=== PATIENT | female | born 1965 | race Caucasian/White ===

== ENCOUNTER → 2023-05-29 13:08 | Outpatient (REF) | payer BC, SELFPAY | LOC: HWRAD 13:08 | PROVIDERS: ATTENDING PHYSICIAN Family Medicine | DX: R05.1 Acute cough (principal); U07.1 COVID-19 | CPT/HCPCS: 71046 ==

== ENCOUNTER → 2023-07-05 15:06 | Outpatient (REF) | payer BC, SELFPAY | LOC: RAD 15:06 | PROVIDERS: ATTENDING PHYSICIAN Family Medicine | DX: R07.89 Other chest pain (principal) | CPT/HCPCS: 71250 ==

== ENCOUNTER → 2023-08-21 11:21 | Outpatient (REF) | payer BC, SELFPAY | LOC: HWRAD 11:21 | PROVIDERS: ATTENDING PHYSICIAN Family Medicine | DX: M54.9 Dorsalgia, unspecified (principal); R30.0 Dysuria | CPT/HCPCS: 72110 ==

== ENCOUNTER → 2023-11-30 08:04 | Outpatient (REF) | payer BC, SELFPAY | LOC: HWRAD 08:04 | PROVIDERS: ATTENDING PHYSICIAN Internal Medicine Rheumatology; REFERRING PHYSICIAN Family Medicine | DX: M81.0 Age-related osteoporosis without current pathological fracture (principal); I31.39 Other pericardial effusion (noninflammatory); M05.79 Rheumatoid arthritis with rheumatoid factor of multiple sites without organ or systems involvement; M19.041 Primary osteoarthritis, right hand; M19.042 Primary osteoarthritis, left hand; R06.02 Shortness of breath; Z13.1 Encounter for screening for diabetes mellitus | CPT/HCPCS: 77080 ==

== ENCOUNTER 2024-09-22 11:05 | Emergency (ER) | payer BC, SELFPAY ==
[2024-09-22 11:08] VITALS: BP 153/98
--- NOTE | 2024-09-22 14:13 | ED.GENMED ---
History of Present Illness
General
Chief Complaint: Musculo-Skeletal Complaint
Time Seen by Provider: 09/22/24 12:52
History of Present Illness
History of Present Illness:
59-year-old female presents to the emergency department for evaluation of right hand pain after fall last night onto an outstretched hand. Primary location of pain is the right lateral hand/fifth metatarsal, no distal paresthesias
Past History
Past History
ED Past Medical History: Other (Anemia)
ED Past Surgical History: Gynecological
Social History
Tobacco: Non-smoker
Alcohol: Occasional
Drug: None
Personal:
Living: with family
Review of Systems
Review of Systems
Allergies reviewed?: Yes
All Other Systems: ROS reviewed and negative except as documented in HPI and ROS
Phy Exam
Physical Exam
Physical Exam:
GEN: Well appearing, NAD, WDWN
HEENT: Oral mucosa moist, no scleral icterus
Cardiac: Regular rate
Lung: No respiratory distress, no tachypnea
MSK: Swelling and ecchymosis of the right ulnar hand particularly dorsally, no palpable deformity, limited range of motion of the 4th and 5th digits secondary to pain, no joint tenderness at the wrist
Skin: Good color, no pallor or jaundice, no rashes
Neuro: AO x3, moves all extremities freely
Psych: Calm, cooperative
Course
Orders/Labs/Results
Orders:
Orders
09/22/24 11:07
CR Hand - Right Min 3 Views Urgent
Comment:
Reason For Exam: pain, swelling, injury
09/22/24 11:10
Wrist, Right 3 Views [CR Wrist - Right Min 3 Views] Urgent
Comment:
Reason For Exam: fall
Vital Signs
Initial and Last Documented VS:
Initial Vital Signs
Temp Pulse Resp BP Pulse Ox
98.4 F 70 16 153/98 97
09/22/24 11:08 09/22/24 11:08 09/22/24 11:08 09/22/24 11:08 09/22/24 11:08
Last Documented Vital Signs
Temp Pulse Resp BP Pulse Ox
98.4 F 70 16 153/98 97
09/22/24 11:08 09/22/24 11:08 09/22/24 11:08 09/22/24 11:08 09/22/24 14:15
MDM/Problems Addressed
MDM/Problems Addressed:
Placed in ulnar gutter splint will refer to orthopedics as an outpatient for right minimally displaced fifth metatarsal fracture
*Pulse Oximetry
SaO2: 97
Oxygen Mode of Delivery: Room air
Patient hypoxic: no
*Critical Care Note
Total Time (30-74mins, 75-104mins- exclusive of procedures): Not Applicable
ED Attending Note
-
Portions of this chart may have been created with voice recognition software.� Occasional wrong word or��sound alike� substitutions may have occurred due to the inherent limitations of voice recognition software.
Discharge Plan
Departure
Patient Disposition: Home (Routine Discharge)
Date of Disposition: 09/22/24
Time of Disposition: 14:14
Patient with high blood pressure during this ER visit?: No
Discharge Problem:
Displaced fracture of neck of right fifth metacarpal bone
Instructions: Hand Fracture ED
Prescriptions:
No Action
multivitamin Tablet
1 tab PO DAILY
clonazepam 0.5 mg Tablet
0.25 - 0.5 mg PO DAILY PRN (Reason: Anxiety)
Patient Comments:
10/12/2022: last filled 05/16/22, 30 tabs for 30 days from [facility]
folic acid 1 mg Tablet
1 mg PO DAILY
cholecalciferol (vitamin D3) [Vitamin D3] 25 mcg (1,000 unit) Tablet
25 mcg PO DAILY
colchicine 0.6 mg tablet
0.6 mg PO BID Qty: 60 2RF
ferrous sulfate 325 mg (65 mg iron) tablet
325 mg PO Q48H
prednisone 20 mg Tablet
20 mg PO DAILY 14 Days Qty: 14 0RF
famotidine 20 mg Tablet
20 mg PO BID 30 Days Qty: 60 0RF
Referrals:
Karthik Boykin DO [Family Provider, Family Practice]
Solis Navarrete MD [Active, Orthopedics]
Interventions
Interventions:
*Risk Screen - Suicide Last Done: 09/22/24 11:08
*General Assessment Last Done: 09/22/24 11:08
*Neglect/Abuse Screening Last Done: 09/22/24 11:08
*Nursing Disposition Last Done: 09/22/24 14:45
ED-Musculoskeletal Assessment Last Done: 09/22/24 12:30
Discharge Date and Time
Discharge Date/Time: 09/22/24 14:46
Print Language: [email or web address]
== END 2024-09-22 14:46 | disposition home or self-care (01) ==
LOC: EMR 11:05
PROVIDERS: EMERGENCY PHYSICIAN Emergency Medicine; FAMILY PHYSICIAN Family Medicine
DX: S62.336A Displaced fracture of neck of fifth metacarpal bone, right hand, initial encounter for closed fracture (principal); W19.XXXA Unspecified fall, initial encounter; D64.9 Anemia, unspecified
CPT/HCPCS: 99283; 29125; 73110; 73130

== ENCOUNTER → 2024-10-15 07:21 | Outpatient (REF) | payer BC, SELFPAY | LOC: HWRAD 07:21 | PROVIDERS: ATTENDING PHYSICIAN Internal Medicine Gastroenterology; FAMILY PHYSICIAN Family Medicine | DX: R10.9 Unspecified abdominal pain (principal) | CPT/HCPCS: 76700 ==

== ENCOUNTER 2024-10-23 06:18 | Day surgery (SDC) | payer BC, SELFPAY | END 2024-10-23 11:01 | disposition home or self-care (01) | LOC: GI 06:18 | PROVIDERS: ATTENDING PHYSICIAN Internal Medicine Gastroenterology | DX: Z12.11 Encounter for screening for malignant neoplasm of colon (principal); K57.50 Diverticulosis of both small and large intestine without perforation or abscess without bleeding; K64.8 Other hemorrhoids; Z83.719 Family history of colon polyps, unspecified; K21.9 Gastro-esophageal reflux disease without esophagitis; K29.70 Gastritis, unspecified, without bleeding | CPT/HCPCS: 43239; G0121; 88305; 88342 ==